=== PATIENT | female | born 1970 | race Caucasian/White ===

== ENCOUNTER 2017-10-29 20:20 | Emergency (ER) | payer OTHER ==
--- NOTE | 2017-10-29 20:26 | ED Physician Documentation ---
General Adult - HISTORIAN Historian: patient - HPI Stated Complaint: cough, fever, chills Chief Complaint: Cough/ Upper Respiratory Onset: days ago (6) Timing: still present Severity: moderate Further Comments: yes (she states for over a week she has had a cough, today she started to feel the cough "moved into my chest" and she states this pm she started to have chills and noticed a slight fever. She has tried OTC meds with moderate relief until today) Last known Well Code/Unknown Code: Unknown - ROS CONST: fever EYES/ENT: nasal drainage, nasal congestion. denies: sore throat CVS/RESP: cough. denies: shortness of breath GI/: none MS/SKIN/LYMPH: denies: rash NEURO/PSYCH: denies: headache, dizziness - PAST HX Past History: other (HTN ) Surgeries/Procedures: none Immunizations: referred to PCP Allergies/Adverse Reactions: Allergies Allergy/AdvReac Type Severity Reaction Status Date / Time No Known Allergies Allergy Verified 10/29/17 20:26 Home Medications: Ambulatory Orders Medication Instructions Recorded Albuterol Sulfate [Proair HFA] 1 inh IH Q4 PRN #1 hfa.aer.ad 10/29/17 Azithromycin [Zithromax] 250 mg PO DAILY #4 tablet 10/29/17 Estrogen,Con/M-Progest Acet 1 each PO DAILY 10/29/17 [Prempro 0.625-5 mg Tablet] Hydrochlorothiazide [Hydrodiuril] 12.5 mg PO DAILY 10/29/17 Loratadine [Claritin] 10 mg PO DAILY 10/29/17 Magnesium Oxide [Mag-Oxide] 1 tab .ROUTE DAILY 10/29/17 Prednisone 20 mg PO D #4 tablet 10/29/17 Topiramate [Topamax] 50 mg PO BID 10/29/17 - SOCIAL HX Smoking History: non-smoker Alcohol Use: none Drug Use: none - FAMILY HX Family History: No - REVIEWED ASSESSMENTS Nursing Assessment Reviewed: Yes Vitals Reviewed: Yes Progress - Progress Progress: Increase inspiratory air and decrease in wheeze post treatment General Adult Physical Exam - PHYSICAL EXAM GENERAL APPEARANCE: no distress EENT: eye inspection normal, ENT inspection normal NECK: normal inspection RESPIRATORY: wheezes (right upper lung ) CVS: reg rate & rhythm, heart sounds normal, equal pulses, no murmur ABDOMEN: soft, no organomegaly BACK: normal inspection SKIN: warm/dry, normal color EXTREMITIES: non-tender, normal range of motion, no evidence of injury NEURO: oriented X3, CN's nml as tested, motor nml Discharge Clincal Impression: Bronchitis Prescriptions: Albuterol Sulfate [Proair HFA] 1 inh IH Q4 PRN #1 hfa.aer.ad PRN Reason: Cough Azithromycin [Zithromax] 250 mg PO DAILY #4 tablet Prednisone 20 mg PO D #4 tablet Referrals: Primary Doctor,No [Primary Care Provider] - 2 Days Condition: Stable Decision to Admit: NO Date of Decison to Admit: 10/29/17 Decision Time: 20:51
[2017-10-29] MEDS ORDERED: IPRATROPIUM/ALBUTEROL SULFATE 3 ML AMPUL.NEB NEB ONE (20:29)
[2017-10-29] MEDS ORDERED: predniSONE 10 MG TABLET PO ONE (20:30)
[2017-10-29] MEDS ORDERED: AZITHROMYCIN 250 MG TABLET PO ONE (20:30)
[2017-10-29 21:46] VITALS: BP 119/90
== END 2017-10-29 21:05 ==
LOC: ED 20:20
DX: J40 Bronchitis, not specified as acute or chronic (principal)
CPT/HCPCS: 99283; J7512